=== PATIENT | female | born 1975 ===

== ENCOUNTER 2021-03-16 10:21 | Emergency (ER) | payer BC ==
[2021-03-16] MEDS ORDERED: Sodium Chloride 0.9% 10 ML Syringe FLUSH PRN (10:23)
[2021-03-16] MEDS ORDERED: Sodium Chloride 0.9% 2.5 ML Syringe FLUSH PRN (10:23)
[2021-03-16] MEDS ORDERED: Hydrochlorothiazide 25 MG Tab PO ONE (10:44)
--- NOTE | 2021-03-16 11:08 | PCM.EKG ---
#1 Interpretation Time: 10:21 EKG Interpretation Comments: EKG: NSR, nonspecific ST/T changes, Rate -60
--- NOTE | 2021-03-16 11:23 | EDM.PDOC ---
ED HPI GENERAL MEDICAL PROBLEM - General Chief Complaint: Chest Pain Stated Complaint: CHEST PAIN Time Seen by Provider: 03/16/21 10:23 Source of Information: Reports: Patient History Limitations: Reports: No Limitations - History of Present Illness INITIAL COMMENTS - FREE TEXT/NARRATIVE: HISTORY AND PHYSICAL: History of present illness: Patient is a 45-year-old female who presents emergency room today with concern of chest pain starting this morning at 8 AM and intermittent palpitations. Patient states that over the past 2 to 3 days in general, she has not felt well and more tired and fatigued. Patient states when she woke up this morning at about 8 AM, she started developing a dull chest pain/pressure in her chest that does occasionally have some sharp stabbing sensation in her right shoulder. Patient states that she does have a history of hypertension but ran out of her medication so has not been taking this. Patient states that she has been monitoring her blood pressure at home and states that it has been "normal "at home. Patient states that she had tried to go to the walk-in clinic today but they sent her here to the emergency room when she is having chest pain. Patient states at this time, her chest pain is improving. Patient states that she did take a full dose of aspirin at about 9 this morning. Patient denies fever, chills, shortness of breath, or cough. Denies headache, neck stiff ness, change in vision, syncope, or near syncope. Denies nausea, vomiting, abdominal pain, diarrhea, constipation, or dysuria. Has not noted any blood in urine or stool. Patient has been eating and drinking appropriately. Review of systems: As per history of present illness and below otherwise all systems reviewed and negative. Past medical history: As per history of present illness and as reviewed below otherwise noncontributory. Surgical history: As per history of present illness and as reviewed below otherwise noncontributory. Social history: See social history for further information Family history: As per history of present illness and as reviewed below otherwise noncontributory. Physical exam: General: Patient is alert, oriented, and in no acute distress. Patient sitting comfortably on exam table. Vitals stable and reviewed by me. HEENT: Atraumatic, normocephalic, pupils equal and reactive bilaterally, negative for conjunctival pallor or scleral icterus, mucous membranes moist, throat clear, neck supple, nontender, trachea midline. No drooling or trismus noted. No meningeal signs. No hot potato voice noted. Lungs: Clear to auscultation, breath sounds equal bilaterally, chest nontender. Heart: S1S2, regular rate and rhythm without overt murmur Abdomen: Soft, nondistended, nontender. Negative for masses or hepatosplenomegaly. Negative for costovertebral tenderness. Pelvis: Stable nontender. Genitourinary: Deferred. Rectal: Deferred. Skin: Intact, warm, dry. No lesions or rashes noted. Extremities: Atraumatic, negative for cords or calf pain. Neurovascular unremarkable. Neuro: Awake, alert, oriented. Cranial nerves II through XII unremarkable. Cerebellum unremarkable. Motor and sensory unremarkable throughout. Exam nonf ocal. Medical Decision Making: Patient is a 45-year-old female, with a history of hypertension noncompliant with medications, who presents emergency room today with concern of chest pain since 8 AM and intermittent palpitations. Upon arrival to the ED, patient is hypertensive two hundreds over nineties, otherwise vitally stable and well- appearing on exam. Patient has not taken her dose of hypertensive meds today, will provide this today in the emergency room. We will also obtain cardiac evaluation, serum hCG, and reassess patient. Patient has already taken a full dose aspirin today. See Dr. Soto's dictation for specific EKG interpretation. Otherwise, normal sinus rhythm without STEMI. I had initially ordered hcg prior to knowing that patient had a total hysterectomy. Hcg qual is positive. Will obtain hCG quant. CBC mild derangements are unremarkable. D-dimer is within normal limits. CMP does show mild hypokalemia at 3.4, troponin negative. Other mild derangements of CMP are unremarkable. hCG quant is 6. Given this number, this can either be considered positive or negative according to the lab value sheet. Covid and influenza are negative. Chest x-ray shows no acute or significant findings. I did discuss with patient that she does have a very mildly positive test today. However, she does have a history of total/complete hysterectomy including removal of her ovaries. I discussed with patient that given the positive test, she should follow-up with her [employer] provider for further evaluation of this. Upon reevaluation of patient, she remains vitally stable and has improvement of her chest pain today in the emergency room. Patient's heart score low risk at 2. Strict return precautions thoroughly discussed with patient. Discussed importance for follow-up with a primary care provider and women's health care provider. Voices understanding and is agreeable to plan of care. Denies any further questions or concerns at this time. Diagnostics: EKG, CBC, CMP, CXR, Trop, Ddimer, Serum hcg Therapeutics: HCTZ/Valsartan, Nitro Prescription: Outpatient holter monitor Impression: Atypical chest pain Palpitations Positive test Plan: 1. You can take Tylenol and ibuprofen as directed for pain and discomfort. 2. Follow-up with a primary care provider/women's health care provider as discussed. Return to the ED as needed and as discussed. Definitive disposition and diagnosis as appropriate pending reevaluation and review of above. chest Pain Score (Numeric/FACES): 2 - Related Data Allergies Allergy/AdvReac Type Severity Reaction Status Date / Time codeine Allergy Other Verified 03/16/21 12:45 shellfish derived Allergy Other Verified 03/16/21 12:45 Home Meds: Home Meds . [No Known Home Meds] 03/16/21 [History] Past Medical History Cardiovascular History: Reports: Hypertension Respiratory History: Reports: Asthma [employer] History: Reports: Neurological History: Reports: CVA - Infectious Disease History Infectious Disease History: Reports: Chicken Pox Social & Family History - Family History Family Medical History: No Pertinent Family History ED ROS GENERAL - Review of Systems Review Of Systems: Comprehensive ROS is negative, except as noted in HPI. ED EXAM, GENERAL - Physical Exam Exam: See Below (see dictation) Course - Vital Signs Last Recorded V/S: Last Vital Signs Temp 97.0 F 03/16/21 10:21 Pulse 59 L 03/16/21 14:41 Resp 18 03/16/21 14:41 BP 145/71 H 03/16/21 14:41 Pulse Ox 98 03/16/21 14:41 - Orders/Labs/Meds Orders: Active Orders 24 hr Category Date Time Status Saline Lock Insert [OM.PC] Stat Oth 03/16/21 10:23 Ordered Labs: Laboratory Tests 03/16/21 03/16/21 03/16/21 Range/Units 10:30 10:30 10:30 WBC 8.50 (4.0-11.0) K/uL RBC 5.07 (4.30-5.90) M/uL Hgb 14.8 (12.0-16.0) g/dL Hct 44.3 (36.0-46.0) % MCV 87.4 (80.0-98.0) fL MCH 29.2 (27.0-32.0) pg MCHC 33.4 (31.0-37.0) g/dL RDW Std Deviation 44.1 (28.0-62.0) fl RDW Coeff of Kika 14 (11.0-15.0) % Plt Count 361 (150-400) K/uL MPV 10.20 (7.40-12.00) fL Neut % (Auto) 58.0 (48.0-80.0) % Lymph % (Auto) 36.4 (16.0-40.0) % Aiken % (Auto) 4.4 (0.0-15.0) % Eos % (Auto) 1.1 (0.0-7.0) % Baso % (Auto) 0.1 (0.0-1.5) % Neut # (Auto) 4.9 (1.4-5.7) K/uL Lymph # (Auto) 3.1 H (0.6-2.4) K/uL Aiken # (Auto) 0.4 (0.0-0.8) K/uL Eos # (Auto) 0.1 (0.0-0.7) K/uL Baso # (Auto) 0.0 (0.0-0.1) K/uL Nucleated RBC % 0.0 /100WBC Nucleated RBCs # 0 K/uL D-Dimer, Quantitative (0.0-0.50) mg/L FEU Sodium 140 (136-145) mmol/L Potassium 3.4 L (3.5-5.1) mmol/L Chloride 104 (98-107) mmol/L Carbon Dioxide 26.9 (21.0-32.0) mmol/L BUN 12 (7.0-18.0) mg/dL Creatinine 1.0 (0.6-1.0) mg/dL Est Cr Clr Drug Dosing 67.63 mL/min Estimated GFR (MDRD) 59.4 ml/min Glucose 94 (74-106) mg/dL Calcium 9.1 (8.5-10.1) mg/dL Total Bilirubin 1.0 (0.2-1.0) mg/dL AST 17 (15-37) IU/L ALT 28 (14-63) IU/L Alkaline Phosphatase 101 (46-116) U/L Troponin I < 0.050 (0.000-0.056) ng/mL Total Protein 7.8 (6.4-8.2) g/dL Albumin 3.9 (3.4-5.0) g/dL Globulin 3.9 (2.6-4.0) g/dL Albumin/Globulin Ratio 1.0 (0.9-1.6) Lipase 93 (73-393) U/L HCG, Qual POSITIVE H (NEG) HCG, Quant mIU/mL Influenza Type A RNA (NEGATIVE) Influenza Type B RNA (NEGATIVE) SARS-CoV-2 RNA (NUNO) (NEGATIVE) 03/16/21 03/16/21 03/16/21 Range/Units 10:30 10:30 10:35 WBC (4.0-11.0) K/uL RBC (4.30-5.90) M/uL Hgb (12.0-16.0) g/dL Hct (36.0-46.0) % MCV (80.0-98.0) fL MCH (27.0-32.0) pg MCHC (31.0-37.0) g/dL RDW Std Deviation (28.0-62.0) fl RDW Coeff of Kika (11.0-15.0) % Plt Count (150-400) K/uL MPV (7.40-12.00) fL Neut % (Auto) (48.0-80.0) % Lymph % (Auto) (16.0-40.0) % Aiken % (Auto) (0.0-15.0) % Eos % (Auto) (0.0-7.0) % Baso % (Auto) (0.0-1.5) % Neut # (Auto) (1.4-5.7) K/uL Lymph # (Auto) (0.6-2.4) K/uL Aiken # (Auto) (0.0-0.8) K/uL Eos # (Auto) (0.0-0.7) K/uL Baso # (Auto) (0.0-0.1) K/uL Nucleated RBC % /100WBC Nucleated RBCs # K/uL D-Dimer, Quantitative 0.29 (0.0-0.50) mg/L FEU Sodium (136-145) mmol/L Potassium (3.5-5.1) mmol/L Chloride (98-107) mmol/L Carbon Dioxide (21.0-32.0) mmol/L BUN (7.0-18.0) mg/dL Creatinine (0.6-1.0) mg/dL Est Cr Clr Drug Dosing mL/min Estimated GFR (MDRD) ml/min Glucose (74-106) mg/dL Calcium (8.5-10.1) mg/dL Total Bilirubin (0.2-1.0) mg/dL AST (15-37) IU/L ALT (14-63) IU/L Alkaline Phosphatase (46-116) U/L Troponin I (0.000-0.056) ng/mL Total Protein (6.4-8.2) g/dL Albumin (3.4-5.0) g/dL Globulin (2.6-4.0) g/dL Albumin/Globulin Ratio (0.9-1.6) Lipase (73-393) U/L HCG, Qual (NEG) HCG, Quant 6.0 mIU/mL Influenza Type A RNA NEGATIVE (NEGATIVE) Influenza Type B RNA NEGATIVE (NEGATIVE) SARS-CoV-2 RNA (NUNO) NEGATIVE (NEGATIVE) 03/16/21 Range/Units 13:02 WBC (4.0-11.0) K/uL RBC (4.30-5.90) M/uL Hgb (12.0-16.0) g/dL Hct (36.0-46.0) % MCV (80.0-98.0) fL MCH (27.0-32.0) pg MCHC (31.0-37.0) g/dL RDW Std Deviation (28.0-62.0) fl RDW Coeff of Kika (11.0-15.0) % Plt Count (150-400) K/uL MPV (7.40-12.00) fL Neut % (Auto) (48.0-80.0) % Lymph % (Auto) (16.0-40.0) % Aiken % (Auto) (0.0-15.0) % Eos % (Auto) (0.0-7.0) % Baso % (Auto) (0.0-1.5) % Neut # (Auto) (1.4-5.7) K/uL Lymph # (Auto) (0.6-2.4) K/uL Aiken # (Auto) (0.0-0.8) K/uL Eos # (Auto) (0.0-0.7) K/uL Baso # (Auto) (0.0-0.1) K/uL Nucleated RBC % /100WBC Nucleated RBCs # K/uL D-Dimer, Quantitative (0.0-0.50) mg/L FEU Sodium (136-145) mmol/L Potassium (3.5-5.1) mmol/L Chloride (98-107) mmol/L Carbon Dioxide (21.0-32.0) mmol/L BUN (7.0-18.0) mg/dL Creatinine (0.6-1.0) mg/dL Est Cr Clr Drug Dosing mL/min Estimated GFR (MDRD) ml/min Glucose (74-106) mg/dL Calcium (8.5-10.1) mg/dL Total Bilirubin (0.2-1.0) mg/dL AST (15-37) IU/L ALT (14-63) IU/L Alkaline Phosphatase (46-116) U/L Troponin I < 0.050 (0.000-0.056) ng/mL Total Protein (6.4-8.2) g/dL Albumin (3.4-5.0) g/dL Globulin (2.6-4.0) g/dL Albumin/Globulin Ratio (0.9-1.6) Lipase (73-393) U/L HCG, Qual (NEG) HCG, Quant mIU/mL Influenza Type A RNA (NEGATIVE) Influenza Type B RNA (NEGATIVE) SARS-CoV-2 RNA (NUNO) (NEGATIVE) Meds: Medications Discontinued Medications Generic Name Dose Route Start Last Admin Trade Name Freq PRN Reason Stop Dose Admin Hydrochlorothiazide 25 mg 03/16/21 10:44 03/16/21 11:28 Hydrochlorothiazide 25 Mg Tab PO 03/16/21 10:45 25 mg ONETIME ONE Administration Nitroglycerin 0.4 mg 03/16/21 11:02 03/16/21 11:48 Nitroglycerin 0.4 Mg Tab.Sl SL 0.4 mg Q5M PRN Administration Chest Pain Sodium Chloride 10 ml 03/16/21 10:23 03/16/21 11:28 Sodium Chloride 0.9% 10 Ml Syringe FLUSH 10 ml ASDIRECTED PRN Administration Keep Vein Open Sodium Chloride 2.5 ml 03/16/21 10:23 03/16/21 11:28 Sodium Chloride 0.9% 2.5 Ml Syringe FLUSH 2.5 ml ASDIRECTED PRN Administration Keep Vein Open Valsartan 160 mg 03/16/21 10:44 03/16/21 12:17 Valsartan 80 Mg Tab PO 03/16/21 10:45 160 mg ONETIME ONE Administration Departure - Departure Time of Disposition: 17:35 Disposition: Home, Self-Care 01 Clinical Impression: Atypical chest pain, Positive test, Heart palpitations - Discharge Information Instructions: Nonspecific Chest Pain, Adult, [id number] Referrals: Benoit Ramos MD [Primary Care Provider] - Forms: ED Department Discharge Additional Instructions: The following information is given to patients seen in the emergency department who are being discharged to home. This information is to outline your options for follow-up care. We provide all patients seen in our emergency department with a follow-up referral. The need for follow-up, as well as the timing and circumstances, are variable depending upon the specifics of your emergency department visit. If you don't have a primary care physician on staff, we will provide you with a referral. We always advise you to contact your personal physician following an emergency department visit to inform them of the circumstance of the visit and for follow-up with them and/or the need for any referrals to a consulting specialist. The emergency department will also refer you to a specialist when appropriate. This referral assures that you have the opportunity for follow-up care with a specialist. All of these measure are taken in an effort to provide you with optimal care, which includes your follow-up. Under all circumstances we always encourage you to contact your private physician who remains a resource for coordinating your care. When calling for follow-up care, please make the office aware that this follow-up is from your recent emergency room visit. If for any reason you are refused follow-up, please contact the [facility] Emergency Department at and asked to speak to the emergency department charge nurse. [facility] Cardiology, Dr. Alvarez [id number], [place] [address] [facility] [address] [place] [address] [facility] [address], [place] [address] 1. You can take Tylenol and ibuprofen as directed for pain and discomfort. Wear the Holter monitor for 2 weeks as discussed. Your results will be sent to the online merchandiser, Dr. Nevarez. Follow-up with the online merchandiser as discussed. 2. Follow-up with a primary care provider/women's health care provider as discussed. Return to the ED as needed and as discussed. Sepsis Event Note (ED) - Evaluation Sepsis Screening Result: No Definite Risk - Focused Exam Vital Signs: Vital Signs Temp Pulse Resp BP BP Pulse Ox 03/16/21 14:41 59 L 18 145/71 H 98 03/16/21 13:33 50 L 18 152/78 H 98 03/16/21 12:17 159/81 H 03/16/21 12:09 47 L 18 97 03/16/21 11:48 150/91 H 03/16/21 11:47 58 L 18 150/91 H 94 L 03/16/21 11:38 191/88 H 03/16/21 11:29 58 L 18 166/97 H 99 03/16/21 10:21 97.0 F 64 18 199/95 H 98 - My Orders Last 24 Hours: My Active Orders 03/16/21 10:23 Saline Lock Insert [OM.PC] Stat - Assessment/Plan Last 24 Hours: My Active Orders 03/16/21 10:23 Saline Lock Insert [OM.PC] Stat
[2021-03-16 11:31] LABS: BLOOD UREA NITROGEN,BUN 12 mg/dL (7.0-18.0); CARBON DIOXIDE,CO2 26.9 mmol/L (21.0-32.0); CHLORIDE,CL 104 mmol/L (98-107); GLUCOSE RANDOM 94 mg/dL (74-106); LIPASE 93 U/L (73-393); POTASSIUM,K 3.4 mmol/L (3.5-5.1); SODIUM,NA 140 mmol/L (136-145)
[2021-03-16] MEDS: Nitroglycerin 0.4 MG Tab.SL SL PRN ×2 (11:38→11:48)
[2021-03-16 11:47] LABS: CORONAVIRUS COVID-19 NAA NEGATIVE (NEGATIVE); INFLUENZA A NAA NEGATIVE (NEGATIVE); INFLUENZA B NAA NEGATIVE (NEGATIVE)
--- NOTE | 2021-03-16 12:22 | CR ---
INDICATION: Chest pain and shortness of breath. TECHNIQUE: Chest 1 view. COMPARISON: None. FINDINGS: Cardiovascular and mediastinum: Heart size and vasculature are normal in caliber and appearance. Lungs and pleural spaces: Lungs are clear. No sign of infiltrate or mass. No sign of pleural effusion. No pneumothorax. Bones and soft tissues: No significant findings. IMPRESSION: No acute or significant findings. Dictated by Santi Grimes MD @ 03/16/2021 12:20:27 PM (Electronically Signed)
== END 2021-03-16 14:42 | disposition home or self-care (01) ==
LOC: MW.ED 10:21
DX: O99.891 Other specified diseases and conditions complicating pregnancy (principal); R07.89 Other chest pain; R00.2 Palpitations; O16.9 Unspecified maternal hypertension, unspecified trimester; O99.519 Diseases of the respiratory system complicating pregnancy, unspecified trimester; J45.909 Unspecified asthma, uncomplicated; Z88.5 Allergy status to narcotic agent; Z91.013 Allergy to seafood; Z20.822 Contact with and (suspected) exposure to COVID-19
CPT/HCPCS: 0240U; 36415; 71045; 80053; 83690; 84484; 84702; 84703; 85025; 85379; 93005; 99285; A9270